=== PATIENT | female | born 1990 | race African-American/Black ===

== ENCOUNTER 2016-11-02 16:59 | Emergency (ER) | payer OTHER ==
[~2016-11-02] VITALS: Ht 165.1 cm; Wt 105.0 kg
[~2016-11-02 16:59] MED LIST: GABA300C3 PO; TRAM50 PO; TYLE3 PO
[2016-11-02 17:00] VITALS: BP 131/72; PULSE 82; RESP 12; TEMP 98.3; O2SAT 97
--- NOTE | 2016-11-02 18:52 | PD ---
HPI Chief Complaint: Dizziness Time Seen by Provider: 18:44 Travel History International Travel<30 days: No Contact w/Intl Traveler<30days: No Traveled to known affect area: No History of Present Illness HPI 26-year-old woman presents emergent from complaining that she's been seeing stars and feeling lightheaded ongoing for quite some time. States usual more lightheaded today is why she came in. Denies any headaches. No cough cold symptoms. No other complaints. She is not prone to anemia. She doesn't really have regular menstrual cycles. No other complaints. History Past Medical History Medical History: Denies Significant Hx : 2 Para: 1 Social History Alcohol Use: No Tobacco Use: No Allergies-Medications (Allergen,Severity, Reaction): Coded Allergies: Bactrim (Verified Allergy, Severe, Swelling, 07/29/16) Reported Meds & Prescriptions Reported Meds & Active Scripts Active Tylenol #3 (Acetaminophen/Codeine Phosphate) Acetaminophen 300/30 Codeine Tab 1 Tab PO Q6H PRN FOR PAIN Ultram (Tramadol HCl) 50 Mg Tab 50 Mg PO Q6H PRN FOR PAIN Reported Gabapentin 300 Mg Cap 600 Mg PO TID Review of Systems Except as stated in HPI: all other systems reviewed are Neg Physical Exam Narrative GENERAL: 26-year-old woman, no acute distress. SKIN: Warm and dry. HEAD: Atraumatic. Normocephalic. EYES: Pupils equal and round. No scleral icterus. No injection or drainage. Pupils equal round and reactive to light. ENT: No nasal bleeding or discharge. Mucous membranes pink and moist. Normal conjunctiva. NECK: Trachea midline. No meningismus. CARDIOVASCULAR: Regular rate and rhythm. No murmur appreciated. RESPIRATORY: No accessory muscle use. Clear to auscultation. Breath sounds equal bilaterally. GASTROINTESTINAL: Abdomen soft, non-tender, nondistended. Hepatic and splenic margins not palpable. MUSCULOSKELETAL: No obvious deformities. No clubbing. No cyanosis. No edema. NEUROLOGICAL: Awake and alert. No obvious cranial nerve deficits. Motor grossly within normal limits. Normal speech. Data Data Last Documented VS Vital Signs Date Time Temp Pulse Resp B/P Pulse Ox O2 Delivery O2 Flow Rate FiO2 11/02/16 17:00 98.3 82 12 131/72 97 Room Air [facility] Medical Decision Making Medical Screen Exam Complete: Yes Emergency Medical Condition: Yes Differential Diagnosis Migraines, headaches, ocular disease, anxiety, pseudotumor, other Narrative Course Medical decision making INITIAL: 26-year-old woman presents emergency department with sounds like us to a year or so of some visual changes. She looks well. I'm seeing her in triage. This point I recommended that she follow-up with her primary doctor. I don't see any evidence breathing dangerous. She has some lightheadedness. She doesn't appear anemic. Significant hypertension cycles. She looks otherwise well. Diagnosis Primary Impression: Visual changes Additional Instructions: Follow-up with her primary physician in the next one to 2 weeks. Return to the emergency department for any new or worsening symptoms. Med/Other Pt SpecificInfo: No Change to Meds Disposition: 01 DISCHARGE HOME Condition: Stable Rene Tompkins MD Nov 02, 2016 18:52
== END 2016-11-02 19:02 | disposition home or self-care (01) ==
LOC: NETRI 16:59
DX: H53.9 Unspecified visual disturbance (principal)
CPT/HCPCS: 99283

== ENCOUNTER 2017-01-18 15:48 | Emergency (ER) | payer OTHER ==
[~2017-01-18] VITALS: Ht 165.1 cm; Wt 150.0 kg
[2017-01-18 15:49] VITALS: BP 143/85; PULSE 76; RESP 18; TEMP 97.6; O2SAT 100
[2017-01-18] MEDS ORDERED: NEUR300C PO (19:52)
--- NOTE | 2017-01-18 19:56 | PD ---
HPI Chief Complaint: Neuro Symptoms/ Deficits Time Seen by Provider: 19:53 Travel History International Travel<30 days: No Contact w/Intl Traveler<30days: No Traveled to known affect area: No History of Present Illness HPI 26-year-old black female with a history of diabetes and noncompliance presents with complaints of her neuropathy pain. She states that she had been on gabapentin for her pain. She is not taking any medications at this time. She does not know what her sugars are. She states that she has changed her Medicaid and has not seen a doctor in some time. She denies any fever or chills. No nausea vomiting. No abdominal pain. No dysuria or frequency. She does complain of tingling and numbness in her hands and feet. She states that her feet are painful to walk. [facility] Past Medical History Narrative Medical Diabetes, neuropathy Developmental Delay: Yes Diabetes: Yes Patient Takes Glucophage: No Diminished Hearing: No Headaches: Yes Immunizations Current: Yes Tetanus Vaccination: < 5 Years ?: Not LMP: 01/14/17 Past Surgical History Surgical History: No Previous Surgery Social History Alcohol Use: No Tobacco Use: No Substance Use: No Allergies-Medications (Allergen,Severity, Reaction): Coded Allergies: Bactrim (Verified Allergy, Severe, Swelling, 01/18/17) Reported Meds & Prescriptions Reported Meds & Active Scripts Active Tylenol #3 (Acetaminophen/Codeine Phosphate) Acetaminophen 300/30 Codeine Tab 1 Tab PO Q6H PRN FOR PAIN Ultram (Tramadol HCl) 50 Mg Tab 50 Mg PO Q6H PRN FOR PAIN Reported Gabapentin 300 Mg Cap 600 Mg PO TID Review of Systems Except as stated in HPI: all other systems reviewed are Neg Physical Exam Narrative GENERAL: Well-developed, well-nourished in no apparent distress. Nontoxic appearing. HEAD: Normocephalic, atraumatic. EYES: Pupils equal round and reactive. Extraocular motions intact. No scleral icterus. No injection or drainage. ENT: Nose clear. Throat without erythema, tonsillar hypertrophy or exudate. Uvula midline. Airway patent. NECK: Trachea midline. Supple, nontender, moves head freely. No central bony tenderness or spasm. CARDIOVASCULAR: Regular rate and rhythm without murmurs, gallops, or rubs. RESPIRATORY: Clear to auscultation. Breath sounds equal bilaterally. No wheezes , rales, or rhonchi. GASTROINTESTINAL: Abdomen soft, non-tender, nondistended. No hepato-splenomegaly , or palpable masses. No guarding. EXTREMITIES: No clubbing, cyanosis, or edema. Patient has intact gross sensation in her feet. She has intact pulses. She complains of diffuse pain in the plantar surface of her feet. She also complains of tingling in her hands. BACK: Nontender without deformity. No flank tenderness. NEUROLOGICAL: Awake, alert and oriented x 3 .Cranial nerves grossly intact. Motor and sensory grossly within normal limits. Normal speech. Data Data Last Documented VS Vital Signs Date Time Temp Pulse Resp B/P Pulse Ox O2 Delivery O2 Flow Rate FiO2 01/18/17 15:49 97.6 76 18 143/85 100 Room Air Orders Blood Glucose (01/18/17 19:51) MDM Medical Decision Making Medical Screen Exam Complete: Yes Emergency Medical Condition: Yes Medical Record Reviewed: Yes Differential Diagnosis Differential diagnoses: Diabetes, neuropathy, joint abnormality, noncompliance Narrative Course This is neuropathy. Patient's given a refill of her gabapentin Diagnosis Primary Impression: Neuropathy Patient Instructions: General Instructions Additional Instructions: Rest. Gabapentin. Follow up with a medical doctor this week for recheck. Med/Other Pt SpecificInfo: Prescription(s) given Scripts Gabapentin (Neurontin)300 Mg Ain257 Mg PO TID #90 CAP Prov:Lit Gomez MD 01/18/17 Disposition: 01 DISCHARGE HOME Condition: Stable Marquis Trujillo Jan 18, 2017 19:56
== END 2017-01-18 20:15 | disposition home or self-care (01) ==
LOC: NEPB 15:48
DX: G62.9 Polyneuropathy, unspecified (principal); E11.9 Type 2 diabetes mellitus without complications; M79.672 Pain in left foot; M79.671 Pain in right foot; R20.2 Paresthesia of skin; R20.0 Anesthesia of skin; Z76.0 Encounter for issue of repeat prescription
CPT/HCPCS: 99283

== ENCOUNTER 2017-04-06 20:38 | Emergency (ER) | payer MEDICAID, OTHER ==
[~2017-04-06 20:38] MED LIST changes: +NEUR300C PO
[2017-04-06 20:41] VITALS: BP 120/74; PULSE 79; RESP 18; TEMP 97.8; O2SAT 100
== END 2017-04-06 23:49 | disposition left against medical advice (07) ==
LOC: NED 20:38
DX: L29.9 Pruritus, unspecified (principal); Z53.21 Procedure and treatment not carried out due to patient leaving prior to being seen by health care provider
CPT/HCPCS: 99281

== ENCOUNTER 2017-10-10 18:16 | Emergency (ER) | payer MEDICAID ==
[2017-10-10 18:18] VITALS: BP 149/77; PULSE 79; RESP 18; TEMP 98.4; O2SAT 97
[2017-10-10] MEDS ORDERED: GABA300C5 PO (18:38)
--- NOTE | 2017-10-10 18:54 | PD ---
HPI Chief Complaint: Associate Teacher Problem/Complaint Time Seen by Provider: 18:37 Travel History International Travel<30 days: No Contact w/Intl Traveler<30days: No Traveled to known affect area: No History of Present Illness HPI The patient is a 27-year-old [place] female who presents emergency Department for vaginal bleeding. The patient states her last normal menstrual cycle was August 28, 2017. The patient then started menstrual cycle on September 25 and is had intermittent vaginal bleeding which she describes as moderate, dark-colored, without any visible clots since September 25. She does have a history of previous similar symptoms in the past. The patient is seen for her yearly gynecologic exams by Dr. Ortiz, states her last one was earlier this year, was normal. She denies any history of bleeding disorder and denies taking any anticoagulants. She does have a history of neuropathy for which she takes Neurontin. She denies any dysuria, frequency, urgency, or discharge, except for the bleeding. She denies any lightheadedness, dizziness, chest pain , shortness of breath, or exertional symptoms. PFSH Past Medical History Developmental Delay: Yes Diabetes: Yes Patient Takes Glucophage: No Diminished Hearing: No Headaches: Yes Immunizations Current: Yes Tetanus Vaccination: > 5 Years ?: Unknown : 2 Para: 1 Social History Alcohol Use: No Tobacco Use: No Substance Use: No Allergies-Medications (Allergen,Severity, Reaction): Coded Allergies: sulfamethoxazole (Unverified Allergy, Severe, Swelling, 10/10/17) trimethoprim (Unverified Allergy, Severe, Swelling, 10/10/17) Reported Meds & Prescriptions Reported Meds & Active Scripts Active Reported Gabapentin 300 Mg Cap 300 Mg PO TID Review of Systems Except as stated in HPI: all other systems reviewed are Neg HENT: No: Lightheadedness Cardiovascular: No: Chest Pain or Discomfort, Dyspnea on exertion Respiratory: No: Shortness of Breath Gastrointestinal: No: Nausea, Vomiting, Abdominal Pain Genitourinary: Positive: Metorrhagia, Vaginal Bleeding, No: Urgency, Frequency , Dysuria, Discharge Musculoskeletal: No: Weakness Neurologic: No: Dizziness Physical Exam Narrative GENERAL: Awake, alert, pleasant 27-year-old female who appears his stated age and is in no acute respiratory distress. SKIN: Focused skin assessment warm/dry. HEAD: Atraumatic. Normocephalic. EYES: Pupils equal and round. No scleral icterus. No injection or drainage. ENT: No nasal bleeding or discharge. Mucous membranes pink and moist. NECK: Trachea midline. No JVD. CARDIOVASCULAR: Regular rate and rhythm. No murmur appreciated. RESPIRATORY: No accessory muscle use. Clear to auscultation. Breath sounds equal bilaterally. GASTROINTESTINAL: Abdomen soft, non-tender, nondistended. No suprapubic tenderness. Back: No CVA tenderness. Genitourinary: The patient deferred the exam, I did discuss how the exam would be performed, patient would prefer not to have a pelvic exam performed. MUSCULOSKELETAL: No obvious deformities. No clubbing. No cyanosis. No edema. NEUROLOGICAL: Awake and alert. No obvious cranial nerve deficits. Motor grossly within normal limits. Normal speech. PSYCHIATRIC: Appropriate mood and affect; insight and judgment normal. Data Data Last Documented VS Vital Signs Date Time Temp Pulse Resp B/P (MAP) Pulse Ox O2 Delivery O2 Flow Rate FiO2 10/10/17 18:18 98.4 79 18 149/77 (101) 97 Room Air Orders Orders Complete Blood Count With Diff (10/10/17 18:49) Basic Metabolic Panel (Bmp) (10/10/17 18:49) Urinalysis - C+S If Indicated (10/10/17 18:49) Ed Urine Pregnancytest Poc (10/10/17 18:49) Urine Culture (10/10/17 19:30) Ed Discharge Order (10/10/17 21:04) Labs Laboratory Tests Test 10/10/17 19:30 White Blood Count 7.4 TH/MM3 Red Blood Count 3.89 MIL/MM3 Hemoglobin 10.1 GM/DL Hematocrit 31.4 % Mean Corpuscular Volume 80.7 FL Mean Corpuscular Hemoglobin 25.9 PG Mean Corpuscular Hemoglobin Concent 32.2 % Red Cell Distribution Width 17.0 % Platelet Count 229 TH/MM3 Mean Platelet Volume 9.6 FL Neutrophils (%) (Auto) 50.7 % Lymphocytes (%) (Auto) 41.6 % Monocytes (%) (Auto) 4.1 % Eosinophils (%) (Auto) 2.7 % Basophils (%) (Auto) 0.9 % Neutrophils # (Auto) 3.8 TH/MM3 Lymphocytes # (Auto) 3.1 TH/MM3 Monocytes # (Auto) 0.3 TH/MM3 Eosinophils # (Auto) 0.2 TH/MM3 Basophils # (Auto) 0.1 TH/MM3 CBC Comment DIFF FINAL Differential Comment Urine Color YELLOW Urine Turbidity HAZY Urine pH 5.5 Urine Specific Martin 1.020 Urine Protein 30 mg/dL Urine Glucose (UA) NEG mg/dL Urine Ketones NEG mg/dL Urine Occult Blood LARGE Urine Nitrite NEG Urine Bilirubin NEG Urine Urobilinogen 2.0 MG/DL Urine Leukocyte Esterase SMALL Urine RBC 173 /hpf Urine WBC 43 /hpf Urine Squamous Epithelial Cells 6 /hpf Urine Bacteria OCC /hpf Urine Mucus FEW /lpf Microscopic Urinalysis Comment CULTURE INDICATED Blood Urea Nitrogen 9 MG/DL Creatinine 0.84 MG/DL Random Glucose 100 MG/DL Calcium Level 8.7 MG/DL Sodium Level 137 MEQ/L Potassium Level 3.6 MEQ/L Chloride Level 101 MEQ/L Carbon Dioxide Level 25.2 MEQ/L Anion Gap 11 MEQ/L Estimat Glomerular Filtration Rate 98 ML/MIN [facility] Medical Decision Making Medical Screen Exam Complete: Yes Emergency Medical Condition: Yes Medical Record Reviewed: Yes Interpretation(s) Laboratory Tests Test 10/10/17 19:30 White Blood Count 7.4 TH/MM3 Red Blood Count 3.89 MIL/MM3 Hemoglobin 10.1 GM/DL Hematocrit 31.4 % Mean Corpuscular Volume 80.7 FL Mean Corpuscular Hemoglobin 25.9 PG Mean Corpuscular Hemoglobin Concent 32.2 % Red Cell Distribution Width 17.0 % Platelet Count 229 TH/MM3 Mean Platelet Volume 9.6 FL Neutrophils (%) (Auto) 50.7 % Lymphocytes (%) (Auto) 41.6 % Monocytes (%) (Auto) 4.1 % Eosinophils (%) (Auto) 2.7 % Basophils (%) (Auto) 0.9 % Neutrophils # (Auto) 3.8 TH/MM3 Lymphocytes # (Auto) 3.1 TH/MM3 Monocytes # (Auto) 0.3 TH/MM3 Eosinophils # (Auto) 0.2 TH/MM3 Basophils # (Auto) 0.1 TH/MM3 CBC Comment DIFF FINAL Differential Comment Urine Color YELLOW Urine Turbidity HAZY Urine pH 5.5 Urine Specific Martin 1.020 Urine Protein 30 mg/dL Urine Glucose (UA) NEG mg/dL Urine Ketones NEG mg/dL Urine Occult Blood LARGE Urine Nitrite NEG Urine Bilirubin NEG Urine Urobilinogen 2.0 MG/DL Urine Leukocyte Esterase SMALL Urine RBC 173 /hpf Urine WBC 43 /hpf Urine Squamous Epithelial Cells 6 /hpf Urine Bacteria OCC /hpf Urine Mucus FEW /lpf Microscopic Urinalysis Comment CULTURE INDICATED Blood Urea Nitrogen 9 MG/DL Creatinine 0.84 MG/DL Random Glucose 100 MG/DL Calcium Level 8.7 MG/DL Sodium Level 137 MEQ/L Potassium Level 3.6 MEQ/L Chloride Level 101 MEQ/L Carbon Dioxide Level 25.2 MEQ/L Anion Gap 11 MEQ/L Estimat Glomerular Filtration Rate 98 ML/MIN Differential Diagnosis Differential diagnosis includes menorrhagia, vaginal bleeding, dysmenorrhea, , ectopic , anemia. Narrative Course Bedside UA test was obtained. CBC was sent to lab. Patient deferred the pelvic exam. Bedside UA test was negative. Hemoglobin was 10.1, baseline appears to be 11 when compared to previous CBC several years ago. The patient is not tachycardic, she deferred pelvic exam. 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 Return if symptoms worsen or progress. Diagnosis Primary Impression: Menorrhagia Qualified Codes: N92.1 - Excessive and frequent menstruation with irregular cycle Patient Instructions: General Instructions Additional Instructions: Follow-up with her newsroom intern. Please provide a patient a copy of her labs at discharge. Return for dizziness, lightheadedness, and tachycardia. Med/Other Pt SpecificInfo: No Change to Meds Disposition: 01 DISCHARGE HOME Condition: Stable Kadeem Beard MD Oct 10, 2017 18:54
[2017-10-10 20:06] LABS: AUTOMATED NEUTROPHIL # 3.8 TH/MM3 (1.8-7.7); BASOPHIL # 0.1 TH/MM3 (0-0.2); BASOPHIL % 0.9 % (0.0-2.0); EOSINOPHIL # 0.2 TH/MM3 (0-0.4); EOSINOPHIL % 2.7 % (0.0-4.0); HEMATOCRIT 31.4 % (35.0-46.0); HEMOGLOBIN 10.1 GM/DL (11.6-15.3); LYMPH % 41.6 % (9.0-44.0); LYMPHOCYTE # 3.1 TH/MM3 (1.0-4.8); MEAN CELL VOLUME 80.7 FL (80.0-100.0); MEAN CORPUSCULAR HEMOGLOBIN 25.9 PG (27.0-34.0); MEAN CORPUSCULAR HGB CONC 32.2 % (32.0-36.0); MEAN PLATELET VOLUME 9.6 FL (7.0-11.0); MONO % 4.1 % (0.0-8.0); MONOCYTE # 0.3 TH/MM3 (0-0.9); NEUT % 50.7 % (16.0-70.0); PLATELET COUNT 229 TH/MM3 (150-450); RED BLOOD COUNT 3.89 MIL/MM3 (4.00-5.30); WHITE BLOOD COUNT 7.4 TH/MM3 (4.0-11.0)
[2017-10-10 20:13] LABS: BACTERIA, URINE OCC /hpf; BILIRUBIN, URINE NEG (NEG); BLOOD, URINE LARGE (NEG); GLUCOSE,URINE NEG (NEG); KETONE, URINE NEG (NEG); MUCUS URINE FEW /lpf (OCC); NITRITE,URINE NEG (NEG); PH, URINE 5.5 (5.0-8.5); SQUAMOUS EPITHELIAL CELL URINE 6 /hpf (0-5); URINE COLOR YELLOW (YELLW/STRAW); URINE LEUKOCYTE ESTERASE SMALL (NEG)
[2017-10-10 20:30] LABS: BICARBONATE 25.2 MEQ/L (21.0-32.0); CALCIUM 8.7 MG/DL (8.5-10.1); CREATININE 0.84 MG/DL (0.50-1.00)
== END 2017-10-10 21:21 | disposition home or self-care (01) ==
LOC: NEPD 18:16
DX: N92.1 Excessive and frequent menstruation with irregular cycle (principal); R82.71 Bacteriuria
CPT/HCPCS: 80048; 81001; 84703; 85025; 87086; 99283